=== PATIENT | male | born 1980 | race Caucasian/White ===

== ENCOUNTER 2019-06-24 17:53 | Emergency (ER) | payer OTHER, SELFPAY ==
--- NOTE | 2019-06-24 17:59 | ECG_ITS ---
Measurements Intervals [place] Rate: 74 P: 45 MA: 154 QRS: -3 QRSD: 110 T: -5 QT: 387 QTc: 430 Interpretive Statements SINUS RHYTHM INCOMPLETE RIGHT BUNDLE BRANCH BLOCK BORDERLINE ST-T WAVE ABNORMALITY- INFERIOR LEADS BORDERLINE ECG Electronically Signed On 06-25-2019 7:01:52 CDT by Yoni Brown D.O.
--- NOTE | 2019-06-24 18:04 | ED.GENADULT ---
HPI - General Adult General Chief complaint: Chest Pain Stated complaint: Chest Pain Time Seen by Provider: 06/24/19 18:04 Source: patient Mode of arrival: ambulatory Limitations: no limitations History of Present Illness HPI narrative: 39-year-old male patient presents to the [facility] with complaints of midsternal to left chest pain. Patient rates his pain at this time about 4-5 out of 10. Patient states it started about 3 days ago and was very mild but has gradually started to increase. Denies any history of heart issues, high blood pressure high cholesterol. Patient states that his father does have a mechanical valve in his heart. Patient denies any shortness of breath, lightheadedness, dizziness, headache, nausea, vomiting or diarrhea. Patient denies taking anything for his symptoms. Related Data Allergies Allergy/AdvReac Type Severity Reaction Status Date / Time No Known Allergies Allergy Unverified 01/22/14 15:26 Review of Systems Review of Systems: Narrative: CONSTITUTIONAL: Denies fever, chills, or sweats. EYES: Denies visual changes, redness, or discharge. ENT: Denies rhinorrhea, congestion, sore throat, or otalgia. CARDIOVASCULAR: Positive left-sided chest pain, denies palpitations, or edema. RESPIRATORY: Denies cough or dyspnea. GASTROINTESTINAL: Denies abdominal pain, nausea, vomiting, or diarrhea. GENITOURINARY: Denies dysuria or hematuria. SKIN: Denies rash or itching. MUSCULOSKELETAL: Denies back pain, joint pain, or myalgia. NEUROLOGIC: Denies headache, numbness, or weakness. PSYCHIATRIC: Denies anxiety or depression. PMFSH Comments At the time of my signature I agree with nursing past medical history, surgical, social, and family history. There is no relevant family history pertinent to the presenting complaint. Exam Narrative: Exam Narrative: GENERAL: Well-appearing, well-nourished, and in no acute distress. HEAD: Normocephalic, atraumatic. EYES: PERRLA and EOMI. ENT: Nares clear, no rhinorrhea or epistaxis. Mucous membranes moist. NECK: Supple. No lymphadenopathy CHEST: Clear to auscultation. No respiratory distress. Patient able talk in clear complete sentences. HEART: Regular rate and rhythm. No murmur heard. Normal peripheral pulses. ABDOMEN: Soft, nontender, nondistended, normal active bowel sounds. EXTREMITIES: Normal range of motion. No edema. SKIN: Warm, dry, no rash. NEURO: No focal deficits. Alert and oriented x3. Course Vital Signs Vital signs: Vital Signs Temperature 37.3 C 06/24/19 18:09 Pulse Rate 81 06/24/19 18:09 Respiratory Rate 18 06/24/19 18:09 Blood Pressure 137/87 06/24/19 18:09 Pulse Oximetry 97 06/24/19 18:09 Temperature 37.3 C 06/24/19 18:09 Pulse Rate 81 06/24/19 18:09 Respiratory Rate 18 06/24/19 18:09 Blood Pressure 137/87 06/24/19 18:09 Pulse Oximetry 97 06/24/19 18:09 Vital signs reviewed. The patient has been informed that they may have pre-hypertension or Hypertension based on a BP reading in the department. I recommend that the patient call the primary care provider listed on their discharge instructions or a physician of their choice this week to arrange follow up for further evaluation of possible pre-hypertension or Hypertension Transfer Transfered to: Juan Luis Transfer rationale: Chest pain Accepting physician: Dr. Roche Transfer comments: Called and spoke with Dr. Kaley Mcknight, ER gave her report on patient that is having some midsternal to left-sided chest pain for the past 3 days is gotten increasingly worse with an EKG showing some ST depression. 324 mg of chewable aspirin was given to the patient patient will be sent over by EMS. Dr. Roche is aware the plan of care at this time denies any other questions or concerns. Medical Decision Making Differential Diagnosis Differential Diagnosis: Differential diagnosis: STEMI/ACS, AAA, PE, spontaneous pneumothorax, cardiac tamponade, esophageal rupture, pneumonia,
[2019-06-24 18:09] VITALS: BP 137/87; PULSE 81; RESP 18; TEMP 37.3; O2SAT 97
[2019-06-24] MEDS: ASPIRIN 81 MG CHEWABLE TABLET 324 MG PO (18:15)
--- NOTE | 2019-06-24 18:24 | PC.NURSE ---
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 had been given 4, 81 mg aspirin.
== END 2019-06-24 18:26 | disposition short-term general hospital (02) ==
PROVIDERS: Emergency Provider Nurse Practitioner Family; PCP Internal Medicine
DX: R07.9 Chest pain, unspecified (principal); I45.10 Unspecified right bundle-branch block
CPT/HCPCS: 93005; 99215; A9270; G0463

== ENCOUNTER 2019-06-24 18:49 | Emergency (ER) | payer OTHER, SELFPAY ==
[2019-06-24] VITALS (7 sets, daily range): BP systolic 118–130; BP diastolic 83–89; PULSE 66–72; RESP 12–18; TEMP 36.6–37; O2SAT 95–98
--- NOTE | ~2019-06-24 | XR_ITS ---
EXAMINATION: XR chest 2V EXAM DATE: 06/24/2019 19:29 INDICATION: Mid chest pain. TECHNIQUE: Frontal and lateral projections of the chest obtained and reviewed. Comparison is made to prior examination from 12/21/2012. FINDINGS: The lungs are clear. There are no pleural effusions. The cardiomediastinal silhouette is within normal limits. There is no pneumothorax suspected. The bones and soft tissues are unremarkab le. IMPRESSION: No acute cardiopulmonary findings. Reviewed, dictated and finalized at location A.
--- NOTE | 2019-06-24 18:55 | ED.CHESTPAIN ---
HPI - Chest Pain General Chief Complaint: Chest Pain Stated Complaint: chest pain Time Seen by Provider: 06/24/19 18:59 Source: patient and RN notes reviewed Mode of arrival: EMS Limitations: no limitations History of Present Illness HPI narrative: A 39 y/o male presents to the ED via EMS from with intermittent, diffuse, chest discomfort for the past 3 days. He states that the pain radiated into his back but has since resolved. He denies any back pain or trouble breathing. No cough or fever. He notes that the pain is aggravated when he lays flat and is alleviated when he sits up. He denies any leg swelling, recent surgeries, recent long car or air travel. He denies numbness or pain in his back, arms or legs. He denies any fevers, cough, sweats, N/V/D, edema, SOB, or ABD pain. Pt does not smoke. No history of alcohol or drug use. No history of cardiac event or family history of sudden cardiac . MD complaint: chest discomfort Onset (ago): day(s) (3) Timing of current episode: episodic and now resolved Pain location: other (Diffuse) Pain radiation: back Relieving factors: sitting upright Exacerbating factors: other (laying flat) Risk Factors Coronary artery disease risk factors: none Related Data Home Medications Medication Instructions Recorded Confirmed No Home Medications 06/24/19 Allergies Allergy/AdvReac Type Severity Reaction Status Date / Time No Known Allergies Allergy Verified 06/24/19 18:57 Review of Systems Review of Systems: Narrative: CONSTITUTIONAL: Denies fever or sweats. CARDIOVASCULAR: Denies edema.Reports intermittent, diffuse, chest discomfort. RESPIRATORY: Denies cough or dyspnea. GASTROINTESTINAL: Denies abdominal pain, nausea, vomiting, or diarrhea. NEURO: Denies numbness All systems reviewed & are unremarkable except as noted in HPI and below PMFSH Past Medical History Medical History Ankle fracture Lt. 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 Surgical History Surgical History Hx of eye surgery Social History Social History Smoking status: Never smoker Alcohol intake: current Substance use: never Exam Narrative: Exam Narrative: GENERAL: Awake, alert, conversant HEAD: Normocephalic, atraumatic. EYES: EOMI, conjunctiva clear ENT: Nares patent. Mucous membranes moist. NECK: Full range of motion CHEST: No respiratory distress, speaking in full sentences, no tachypnea, no chest wall tenderness. HEART: Regular rate ABDOMEN: Non distended, non tender EXTREMITIES: Normal range of motion. No edema. SKIN: Warm, dry, no rash. NEURO: No focal deficits. Alert and oriented x3. Course Vital Signs Vital signs: Vital Signs Temperature 36.8 C 06/24/19 18:49 Pulse Rate 71 06/24/19 18:49 Respiratory Rate 16 06/24/19 18:49 Blood Pressure 124/87 06/24/19 18:49 Pulse Oximetry 96 06/24/19 18:49 Temperature 36.8 C 06/24/19 18:49 Pulse Rate 66 06/24/19 19:41 Respiratory Rate 12 06/24/19 19:41 Blood Pressure 118/85 06/24/19 19:41 Pulse Oximetry 97 06/24/19 19:41 MDM - Chest Pain MDM Narrative Medical decision making narrative: Patient's EKG and labs are without significant high risk changes. Patient does not have any concerning ST depression, no Brugada type pattern, no delta wave, no evidence of ST elevation. Given patient only has chest pain when he is laying flat, although has no orthopnea, no sign of heart failure. Cardiac risk factors reviewed. Patient is felt low risk for ACS and reasonable for further risk stratification testing as an outpatient. Pain was not sudden or maximal or onset without tearing or ripping quality. No other signs or symptoms to suggest aortic dissection. A low risk well's criteria is noted, PE is felt to be unlikely as no tachycardia, hypoxia, dyspnea. No p
--- NOTE | 2019-06-24 19:03 | PC.NURSE ---
Pt states he has L sided chest pain that is noticeable when laying down. Pt states he does not notice it while active. Pt states the pain has been present x 2 days. Pt is A&Ox4. Pt denies other symptoms. Pt LCTA
--- NOTE | 2019-06-24 19:08 | ECG_ITS ---
Measurements Intervals [place] Rate: 69 P: 34 OR: 158 QRS: 1 QRSD: 110 T: 11 QT: 401 QTc: 432 Interpretive Statements SINUS RHYTHM BORDERLINE T WAVE ABNORMALITY- INFERIOR LEADS BASELINE ARTIFACT- I, III, AVL BORDERLINE ECG Electronically Signed On 06-25-2019 7:02:50 CDT by Yoni Brown D.O.
[2019-06-24 19:13] LABS: Basophils Percent Auto 0.5 % (0.2-1.2); Eosinophils Absolute Auto 0.2 K/mm3 (0-0.3); Hematocrit 43.6 % (42.0-52.0); Hemoglobin 15.1 g/dL (14.0-18.0); Immature Granulocyte Absolute 0.01 K/mm3 (0.00-0.031); Immature Granulocyte Percent A 0.1 % (0-0.5); Lymphocytes Absolute Auto 2.55 K/mm3 (0.9-3.2); Lymphocytes Percent Auto 34.9 % (18.3-44.2); Mean Corpuscular HGB Conc 34.6 g/dl (32-36); Mean Corpuscular Hemoglobin 31.7 pg (26-34); Mean Corpuscular Volume 91.4 fl (80-100); Mean Platelet Volume 11.1 fl (7.4-10.4); Monocytes Absolute Auto 0.6 K/mm3 (0.1-0.6); Monocytes Percent Auto 7.9 % (2.6-8.5); Neutrophils Absolute Auto 3.9 K/mm3 (1.3-6.7); Neutrophils Percent Auto 53.6 % (45.5-73.1); Platelet Count Result 202 k/mm3 (150-375); Red Blood Count 4.77 M/mm3 (4.6-6.20); Red Cell Distribution Width 11.9 % (11.5-14.5); White Blood Count 7.3 K/mm3 (4.5-10.0)
[2019-06-24 19:23] LABS: Prothrombin Time 13.1 Seconds (11.1-14.7)
[2019-06-24 19:24] LABS: Partial Thromboplastin Time 24.6 SECONDS (22.3-36.8)
[2019-06-24 19:27] LABS: Blood Urea Nitrogen 14 mg/dL (9-20); Carbon Dioxide 31 mmol/L (22-30); Chloride 101 mmol/L (98-107); Estimated CRCL calculation 98 ml/min; Estimated Glomerular Filt Rate > 60; Glucose 104 mg/dL (75-110); Potassium 3.5 mmol/L (3.4-5.0); Sodium 137 mmol/L (137-145)
[2019-06-24 19:39] LABS: NT Pro B Type Natriuretic Pept 67 PG/ML (5-100); Troponin I < 0.012 ng/mL (0.000-0.034)
[2019-06-24 21:36] LABS: Troponin I < 0.012 ng/mL (0.000-0.034)
== END 2019-06-24 22:21 | disposition home or self-care (01) ==
PROVIDERS: Emergency Provider Emergency Medicine; PCP Internal Medicine
DX: R07.89 Other chest pain (principal); Z85.828 Personal history of other malignant neoplasm of skin; R94.31 Abnormal electrocardiogram [ECG] [EKG]
CPT/HCPCS: 36415; 71046; 80048; 83880; 84484; 85025; 85610; 85730; 93005; 99284

== ENCOUNTER 2019-09-24 07:27 | Emergency (ER) | payer OTHER, SELFPAY ==
--- NOTE | ~2019-09-24 | XR_ITS ---
EXAMINATION: XR chest 1V portable EXAM DATE: 09/24/2019 08:46 INDICATION: Cough. TECHNIQUE: Portable AP frontal chest x-ray was obtained. Comparison is made to prior examination from 06/24/2019. FINDINGS: The lungs are clear. There are no pleural effusions. The cardiomediastinal silhouette is within normal limits. There is no pneumothorax suspected. The bones and soft tissues are unremarkab le. IMPRESSION: No acute cardiopulmonary findings. Reviewed, dictated and finalized at location B.
[2019-09-24 07:36] VITALS: BP 144/98; PULSE 84; RESP 18; TEMP 37.2; O2SAT 99
[2019-09-24 07:38] VITALS: O2SAT 99
--- NOTE | 2019-09-24 08:19 | ED.URI ---
HPI - URI/Sore Throat General Chief Complaint: Upper Respiratory Infection Stated Complaint: cough, achy Time Seen by Provider: 09/24/19 07:43 Source: patient Mode of arrival: ambulatory Limitations: no limitations History of Present Illness HPI Narrative: This patient is a 39 year old male who presents for evaluation of cough. He states starting on Saturday he developed flu like symptoms. He states he has had sore throat, body aches, cough . His cough yesterday became productive with phlegm. He denies wheezing or shortness of breath. He is concern if he needs antibiotics. HE also states he had fever last night of 100 F. His and daughter have had similar symptoms but he states there symptoms only lasted 2 days. He feels better but he came to be assesed for need for antibiotics for his productive cough. MD elicited complaint: fever, cough, sore throat and rhinorrhea Onset (ago): day(s) (5) Consistency: improved Able to tolerate fluids by mouth: Yes Exacerbating factors: nothing Context: sick contacts Associated symptoms: fever, chills, myalgias, sore throat and cough Related Data Allergies Allergy/AdvReac Type Severity Reaction Status Date / Time No Known Allergies Allergy Verified 06/24/19 18:57 Review of Systems Review of Systems: All systems reviewed & are unremarkable except as noted in HPI and below Constitutional: Constitutional: Reports chills and Reports fever(s) ENT: Reports sore throat Cardiovascular: Cardiovascular: Denies chest pain Respiratory: Respiratory: Reports chest congestion, Reports cough, Denies dyspnea and Denies wheezing Gastrointestinal: Gastrointestinal: Denies abdominal pain, Reports diarrhea and Denies nausea Musculoskeletal: Musculoskeletal: Reports myalgias PMFSH Social History Social History Smoking status: Never smoker Alcohol intake: current Substance use: never Gender identity (if verbalized by the patient): Male Exam Narrative: Exam Narrative: GENERAL: Well-appearing, well-nourished, and in no acute distress. HEAD: Normocephalic, atraumatic EYES: PERRLA and EOMI, conjunctiva clear without discharge EARS: TM's clear bilaterally without erythema or dullness NOSE: Nares clear, no rhinorrhea or epistaxis THROAT:Mucous membranes moist, Oropharynx normal without erythema, exudate, peritonsillar swelling or fluctuance NECK: Supple, without lymphadenopathy or mass RESPIRATORY: No respiratory distress, Airway patent, Respirations non-labored, Clear to auscultation without rales, rhonchi or wheeze HEART: Regular rate and rhythm. No murmur heard. Normal peripheral pulses. ABDOMEN: Soft, nontender, nondistended, normal active bowel sounds. No masses. No rebound or guarding, No organomegaly. EXTREMITIES: No edema, normal strength with full range of motion. SKIN: Warm, dry, normal color without rash NEURO: Alert and oriented x3. CN 2-12 grossly intact. No focal deficits. PSYCH: Normal mood and affect. Course Reevaluation(s) Reevaluation #1: I have discsused with patient that he is being tested for COVID. No pneumonia or hypoxia seen. Date: 09/24/19 Time: 09:38 Vital Signs Vital signs: Vital Signs Temperature 99.0 F 09/24/19 07:36 Pulse Rate 84 09/24/19 07:36 Respiratory Rate 18 09/24/19 07:36 Blood Pressure 144/98 H 09/24/19 07:36 Pulse Oximetry 99 09/24/19 07:36 Temperature 99.0 F 09/24/19 07:36 Pulse Rate 81 09/24/19 10:00 Respiratory Rate 12 09/24/19 10:00 Blood Pressure 141/98 H 09/24/19 10:00 Pulse Oximetry 96 09/24/19 10:00 MDM - URI/Sore Throat Lab Data Labs: Lab Results 09/24/19 Range/Units 08:55 SARS-CoV-2 RNA (RT-PCR) Pending Influenza A Screen Negative Reference Range: Negative Influenza B Screen Negative Reference Range: Negative Strep Screen Presumptive Negative *(Reference
[2019-09-24 10:00] VITALS: BP 141/98; PULSE 81; RESP 12; O2SAT 96
[2019-09-25 14:41] LABS: SARS-CoV-2 RNA PCR Positive
== END 2019-09-24 10:01 | disposition home or self-care (01) ==
PROVIDERS: Emergency Provider General Practice; PCP Internal Medicine
DX: U07.1 COVID-19 (principal); J06.9 Acute upper respiratory infection, unspecified
CPT/HCPCS: 71045; 87081; 87635; 87804; 87880; 99283; C9803; U0003

== ENCOUNTER 2019-09-26 08:41 | Emergency (ER) | payer OTHER, SELFPAY ==
--- NOTE | ~2019-09-26 | CT_ITS ---
EXAMINATION: CTA chest PE protocol DATE: 09/26/2019 09:52 INDICATION: Chest pain and pressure. COVID 19 positive TECHNIQUE: Computed tomography (CT) pulmonary angiogram of the chest was performed with 100 mL Omnipa que-350 intravenous contrast. Additional 3D reconstructions utilizing coronal maximum intensity proje ction (MIP) were performed. Automated exposure control and iterative reconstruction technique were em ployed. The dose-length product was 504.94 mGy-cm. COMPARISON: None FINDINGS: Excellent contrast opacification of the pulmonary arteries. There is mild streak artifact from dense contrast in the superior vena cava and right atrium. Minimal scattered respiratory motion artifact wh ich does not significantly limit evaluation. No pulmonary embolism. Triangular 8 mm subsolid nodule i n the posterior segment of the left upper lobe. Other airspace opacities, pulmonary edema, pleural ef fusion or pneumothorax. Heart size is normal. No pericardial effusion. Thoracic aorta is normal in ca liber with no dissection. No pathologically enlarged thoracic lymphadenopathy. Visualized upper abdom en is unremarkable. Mild thoracic spondylosis. IMPRESSION: 1. No pulmonary embolism. 2. Single 8 mm subsolid nodule in the left upper lobe which is most likely infectious/inflammatory in etiology. Recommend 6-12 month follow-up noncontrast chest CT. Reviewed, dictated and finalized at location A. IMPRESSION: 1. No pulmonary embolism. 2. Single 8 mm subsolid nodule in the left upper lobe which is most likely infe ctious/inflammatory in etiology. Recommend 6-12 month follow-up noncontrast [facility] CT.
[2019-09-26 08:45] VITALS: BP 131/104; PULSE 78; RESP 18; TEMP 37.1; O2SAT 97
--- NOTE | 2019-09-26 08:51 | ECG_ITS ---
Measurements Intervals [place] Rate: 72 P: 40 IN: 140 QRS: 8 QRSD: 102 T: -17 QT: 385 QTc: 424 Interpretive Statements SINUS RHYTHM WITH SINUS ARRHYTHMIA NONSPECIFIC ST & T-WAVE ABNORMALITY- ANTEROLAT/INF LEADS BORDERLINE ECG Electronically Signed On 09-26-2019 13:20:21 CDT by Yoni Brown D.O.
--- NOTE | 2019-09-26 08:54 | ED.CHESTPAIN ---
HPI - Chest Pain General Chief Complaint: Chest Pain Stated Complaint: Covid+, chest pain Time Seen by Provider: 09/26/19 08:45 History of Present Illness HPI narrative: Chest pressure for the past few days. constant. Positive test for COVID 19 2 days ago. Was feeling very sick at that time, feeling much better now. Told his uncle, who is a physician, about his symptoms and he was told to come here and make sure that he does not have a blood clot. Related Data Allergies Allergy/AdvReac Type Severity Reaction Status Date / Time No Known Allergies Allergy Verified 09/26/19 08:51 Review of Systems Review of Systems: All systems reviewed & are unremarkable except as noted in HPI and below Constitutional: Constitutional: Denies fatigue, Reports fever(s) and Denies weakness ENT: Denies sore throat Cardiovascular: Cardiovascular: Reports chest pain and Denies radiating jaw, neck or arm pain Respiratory: Respiratory: Reports cough and Denies dyspnea Gastrointestinal: Gastrointestinal: Denies abdominal pain, Reports diarrhea and Reports nausea Musculoskeletal: Musculoskeletal: Reports myalgias PMFSH Past Medical History Medical History (Updated 09/26/19 @ 10:34 by Benjamin Caldwell MD) Ankle fracture Lt. 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 Surgical History Surgical History Hx of eye surgery Social History Social History Smoking status: Never smoker Alcohol intake: current Substance use: never Gender identity (if verbalized by the patient): Male Exam Const: General: healthy appearing, no acute distress and alert Orientation/consciousness: patient oriented x3 HENMT: Head: normal to inspection Neck: Neck: normal visual inspection and no lymphadenopathy Chest: Chest palpation & inspection: no tenderness Resp: Effort & Inspection: normal respiratory effort Auscultation: clear to auscultation bilaterally, no rales, no rhonchi and no wheezes Cardio: Jugular venous distension: no JVD Rate: regular rate Rhythm: regular rhythm Heart sounds: no murmurs GI: Inspection: non-distended GI Palp: Yes Soft to palpation and No Tenderness to palpation present (GI) Skin: General skin exam: normal color Neuro: General: patient oriented x3 and moves all extremities Speech: normal speech Extrem: General: no edema Psych: Appearance: well kempt Affect: Anxious affect present Course Vital Signs Vital signs: Vital Signs Temperature 37.1 C 09/26/19 08:45 Pulse Rate 78 09/26/19 08:45 Respiratory Rate 18 09/26/19 08:45 Blood Pressure 131/104 H 09/26/19 08:45 Pulse Oximetry 97 09/26/19 08:45 Temperature 37.1 C 09/26/19 08:45 Pulse Rate 62 09/26/19 11:03 Respiratory Rate 20 09/26/19 11:03 Blood Pressure 134/85 09/26/19 11:03 Pulse Oximetry 99 09/26/19 11:03 MDM - Chest Pain MDM Narrative Medical decision making narrative: CTA negative. Informed of nodule and need for follow-up. Medical Records Data Attestation: I reviewed the patient's medical records. Lab Data Attestation: I reviewed the patient's lab results. Result diagrams: 09/26/19 09:04 09/26/19 09:04 Labs: Lab Results 09/26/19 09/26/19 09/26/19 Range/Units 09:04 09:04 09:04 WBC 2.8 L (4.5-10.0) K/mm3 RBC 4.94 (4.6-6.20) M/mm3 Hgb 15.6 (14.0-18.0) g/dL Hct 44.0 (42.0-52.0) % MCV 89.1 (80-100) fl MCH 31.6 (26-34) pg MCHC 35.5 (32-36) g/dl RDW 11.5 (11.5-14.5) % Plt Count 171 (150-375) k/mm3 MPV 11.0 H (7.4-10.4) fl Immature Gran % (Auto) 0.0 (0-0.5) % Neut % (Auto) 31.6 L (45.5-73.1) % Lymph % (Auto) 49.5 H (18.3-44.2) % [place] % (Auto) 14.9 H (2.6-8.5) % Eos % (Auto) 3.3 (0-4.4) % Baso % (Auto) 0.7 (0.2-1.2) % Lymph # (Auto) 1.36
[2019-09-26 09:16] LABS: Basophils Percent Auto 0.7 % (0.2-1.2); Eosinophils Absolute Auto 0.1 K/mm3 (0-0.3); Eosinophils Percent Auto 3.3 % (0-4.4); Hemoglobin 15.6 g/dL (14.0-18.0); Lymphocytes Absolute Auto 1.36 K/mm3 (0.9-3.2); Lymphocytes Percent Auto 49.5 % (18.3-44.2); Mean Corpuscular HGB Conc 35.5 g/dl (32-36); Mean Corpuscular Hemoglobin 31.6 pg (26-34); Mean Corpuscular Volume 89.1 fl (80-100); Monocytes Absolute Auto 0.4 K/mm3 (0.1-0.6); Monocytes Percent Auto 14.9 % (2.6-8.5); Neutrophils Absolute Auto 0.9 K/mm3 (1.3-6.7); Neutrophils Percent Auto 31.6 % (45.5-73.1); Platelet Count Result 171 k/mm3 (150-375); Red Blood Count 4.94 M/mm3 (4.6-6.20); Red Cell Distribution Width 11.5 % (11.5-14.5); White Blood Count 2.8 K/mm3 (4.5-10.0)
[2019-09-26 09:25] VITALS: BP 120/96; PULSE 76; RESP 18; O2SAT 98
[2019-09-26 09:25] LABS: Prothrombin Time 12.6 Seconds (11.1-14.7)
[2019-09-26 09:26] LABS: Partial Thromboplastin Time 27.7 SECONDS (22.3-36.8)
[2019-09-26 09:29] LABS: Blood Urea Nitrogen 12 mg/dL (9-20); Calcium 8.8 mg/dL (8.4-10.2); Carbon Dioxide 24 mmol/L (22-30); Chloride 106 mmol/L (98-107); D Dimer 0.27 ug/mL (<0.48); Estimated Glomerular Filt Rate > 60; Glucose 103 mg/dL (75-110); Potassium 4.2 mmol/L (3.4-5.0); Sodium 137 mmol/L (137-145)
[2019-09-26 09:41] LABS: Troponin I < 0.012 ng/mL (0.000-0.034)
[2019-09-26 11:03] VITALS: BP 134/85; PULSE 62; RESP 20; O2SAT 99
== END 2019-09-26 11:05 | disposition home or self-care (01) ==
PROVIDERS: Emergency Provider Emergency Medicine; PCP Internal Medicine
DX: R07.89 Other chest pain (principal); U07.1 COVID-19; R94.31 Abnormal electrocardiogram [ECG] [EKG]; Z85.828 Personal history of other malignant neoplasm of skin; R91.1 Solitary pulmonary nodule
CPT/HCPCS: 36415; 71275; 80048; 84484; 85025; 85380; 85610; 85730; 93005; 99284; Q9967

== ENCOUNTER 2019-09-28 00:47 | Emergency (ER) | payer OTHER, SELFPAY ==
--- NOTE | ~2019-09-28 | XR_ITS ---
EXAMINATION: XR chest 1V portable DATE: 09/28/2019 02:04 INDICATION: Chest pain TECHNIQUE: frontal view of the chest was obtained. COMPARISON: Chest radiograph dated 09/24/2019 FINDINGS: The lungs remain clear with no focal airspace opacities, pulmonary edema, pleural effusion or pneumot horax. The cardiomediastinal silhouette is normal. Visualized bones and soft tissues are unremarkable . IMPRESSION: 1. No acute cardiopulmonary disease. Reviewed, dictated and finalized at location A.
[2019-09-28 00:57] VITALS: BP 140/100; PULSE 75; RESP 16; TEMP 36.7; O2SAT 97
--- NOTE | 2019-09-28 01:01 | ECG_ITS ---
Measurements Intervals [place] Rate: 74 P: 26 TN: 144 QRS: -5 QRSD: 105 T: -8 QT: 393 QTc: 438 Interpretive Statements SINUS RHYTHM NONSPECIFIC ST & T-WAVE ABNORMALITY- ANT/INF LEADS BORDERLINE ECG Electronically Signed On 09-28-2019 7:14:01 CDT by Yoni Brown D.O.
--- NOTE | 2019-09-28 01:01 | PC.NURSE ---
Patient states I've had all this the past 2 days, I don't want to do that again, Ill just do the EKG and wait for the doctor to come in. Patient refusing blood draw and IV placement at this time.
--- NOTE | 2019-09-28 01:37 | ED.CHESTPAIN ---
HPI - Chest Pain General Chief Complaint: Chest Pain Stated Complaint: COVID +, chest pain Time Seen by Provider: 09/28/19 00:51 Source: RN notes reviewed and old records reviewed History of Present Illness HPI narrative: Patient presents emergency department from home for chest pain. Patient states he was diagnosed with COVID-19 on 23 September. He states that since that time he has been having midsternal chest pain that is worse at night and improves during the day. Patient states he also feels short of breath patient was seen in the emergency department 2 days ago and had a full work-up including a CTA of his chest that was negative. He states he did take ibuprofen at home with minimal relief. Denies any fevers or chills abdominal pain or any other symptoms Related Data Allergies Allergy/AdvReac Type Severity Reaction Status Date / Time No Known Allergies Allergy Verified 09/26/19 08:51 Review of Systems Review of Systems: Narrative: Gen.: Denies fevers or chills ENT: Denies congestion Respiratory: Reports shortness of breath CV: See HPI GI: Denies abdominal pain nausea, emesis or diarrhea Musculoskeletal: Denies back pain or muscle pain Neuro: Denies numbness, tingling, weakness or focal weakness Skin: Denies rash Except as documented, all other systems reviewed and negative PMFSH Past Medical History Medical History Ankle fracture Lt. 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 Surgical History Surgical History Hx of eye surgery Social History Social History Smoking status: Never smoker Alcohol intake: current Substance use: never Gender identity (if verbalized by the patient): Male Exam Narrative: Exam Narrative: APPEARANCE: No acute distress, nontoxic, resting in bed EYES: EOMI HEENT: Normocephalic, atraumatic, OMM RESPIRATORY: No respiratory distress Clear to auscultation bilaterally with no rhonchi wheezing or rales. CARDIOVASCULAR: Regular rate and rhythm without murmurs rubs or gallops. ABDOMINAL: Soft, nontender, nondistended, no rebound or guarding MUSCULOSKELETAl: Moves all extremities. No clubbing, cyanosis or edema. NEURO: Awake and alert. Following commands, speech normal, no focal deficits SKIN:: Warm, dry. No rashes lesions or abrasions PSYCHIATRIC: Normal affect/mood, Course Course Emergency Course: Get all the records. Patient with cardiac work-up less than 2 days ago including CTA of his chest Patient states chest pain is resolved with morphine Discussed with patient results of workup and diagnosis. Discussed need for follow-up with primary care, proper use of medication, and reasons to return to the emergency department. Patient understands and agrees to current treatment plan. Patient states he does not have an inhaler at home will send home inhaler Vital Signs Vital signs: Vital Signs Temperature 98.1 F 09/28/19 00:57 Pulse Rate 75 09/28/19 00:57 Respiratory Rate 16 09/28/19 00:57 Blood Pressure 140/100 H 09/28/19 00:57 Pulse Oximetry 97 09/28/19 00:57 Temperature 98.1 F 09/28/19 00:57 Pulse Rate 59 L 09/28/19 03:12 Respiratory Rate 14 09/28/19 03:12 Blood Pressure 126/88 09/28/19 03:12 Pulse Oximetry 99 09/28/19 03:12 MDM - Chest Pain Lab Data Result diagrams: 09/28/19 01:58 09/28/19 01:58 Labs: Lab Results 09/28/19 09/28/19 09/28/19 Range/Units 01:58 01:58 01:58 WBC 4.0 L (4.5-10.0) K/mm3 RBC 4.63 (4.6-6.20) M/mm3 Hgb 14.7 (14.0-18.0) g/dL Hct 41.4 L (42.0-52.0) % MCV 89.4 (80-100) fl MCH 31.7 (26-34) pg MCHC 35.5 (32-36) g/dl RDW 11.4 L (11.5-14.5) % Plt Count 186 (150-375) k/mm3 MPV 10.9 H (7.4-10.4) fl Immature Gran % (Auto) 0.3 (0-0.
[2019-09-28] MEDS: MORPHINE SULFATE 2 MG/ML INJ IV PUSH (01:59)
[2019-09-28 02:08] LABS: Basophils Percent Auto 0.5 % (0.2-1.2); Eosinophils Absolute Auto 0.1 K/mm3 (0-0.3); Eosinophils Percent Auto 2.8 % (0-4.4); Hematocrit 41.4 % (42.0-52.0); Hemoglobin 14.7 g/dL (14.0-18.0); Immature Granulocyte Absolute 0.01 K/mm3 (0.00-0.031); Immature Granulocyte Percent A 0.3 % (0-0.5); Lymphocytes Absolute Auto 1.29 K/mm3 (0.9-3.2); Lymphocytes Percent Auto 32.5 % (18.3-44.2); Mean Corpuscular HGB Conc 35.5 g/dl (32-36); Mean Corpuscular Hemoglobin 31.7 pg (26-34); Mean Corpuscular Volume 89.4 fl (80-100); Mean Platelet Volume 10.9 fl (7.4-10.4); Monocytes Absolute Auto 0.5 K/mm3 (0.1-0.6); Monocytes Percent Auto 13.4 % (2.6-8.5); Neutrophils Percent Auto 50.5 % (45.5-73.1); Platelet Count Result 186 k/mm3 (150-375); Red Blood Count 4.63 M/mm3 (4.6-6.20); Red Cell Distribution Width 11.4 % (11.5-14.5)
[2019-09-28 02:19] LABS: Blood Urea Nitrogen 9 mg/dL (9-20); Calcium 8.6 mg/dL (8.4-10.2); Carbon Dioxide 27 mmol/L (22-30); Chloride 101 mmol/L (98-107); Estimated Glomerular Filt Rate > 60; Glucose 107 mg/dL (75-110); Potassium 3.6 mmol/L (3.4-5.0); Sodium 136 mmol/L (137-145)
[2019-09-28 02:31] LABS: Troponin I < 0.012 ng/mL (0.000-0.034)
[2019-09-28 02:39] LABS: INR 1.1; Partial Thromboplastin Time 28.9 SECONDS (22.3-36.8); Prothrombin Time 13.9 Seconds (11.1-14.7)
[2019-09-28 03:12] VITALS: BP 126/88; PULSE 59; RESP 14; O2SAT 99
[2019-09-28 03:49] VITALS: BP 124/90; PULSE 74; RESP 17; TEMP 36.6; O2SAT 98
== END 2019-09-28 03:50 | disposition home or self-care (01) ==
PROVIDERS: Emergency Provider Emergency Medicine; PCP Internal Medicine
DX: U07.1 COVID-19 (principal); R07.89 Other chest pain
CPT/HCPCS: 36415; 71045; 80048; 84484; 85025; 85610; 85730; 93005; 96374; 99284; J2270

== ENCOUNTER 2020-06-29 14:25 | Emergency (ER) | payer OTHER, SELFPAY ==
--- NOTE | ~2020-06-29 | XR_ITS ---
EXAMINATION: XR chest 2V DATE: 06/29/2020 14:43 INDICATION: Burning chest pain. TECHNIQUE: Frontal and lateral views of the chest were obtained. COMPARISON: Chest single view 09/28/2019, chest CT 09/26/2019 FINDINGS: The chest demonstrates clear lungs without pneumonia, pleural effusion, or pneumothorax. Th e heart size is normal. IMPRESSION: 1. No acute cardiopulmonary disease. Reviewed, dictated and finalized at location A.
[2020-06-29 14:35] VITALS: BP 133/88; PULSE 86; RESP 16; TEMP 36.6; O2SAT 98
--- NOTE | 2020-06-29 14:55 | ED.URI ---
HPI - URI/Sore Throat General Chief Complaint: Upper Respiratory Infection Stated Complaint: LUNG BURNING Time Seen by Provider: 06/29/20 14:56 Source: patient and RN notes reviewed Mode of arrival: ambulatory Limitations: no limitations History of Present Illness HPI Narrative: 40-year-old male presents with concern for chest burning . Reports he has had these symptoms intermittently since June of last year. Reports he has been seen in the emergency room several times, however he has not seen his primary care doctor for this problem. Reports over the last several days he has had mild cough, rhinorrhea, nasal congestion which seemed to make the symptoms in his lungs worse. Reports symptoms are worse at night when he is laying down, reports hearing a crackling sound when he is laying down at night, with shortness of breath. He denies any fever, body aches, chills, sweats. Denies taking any medications for his symptoms. He denies any acute chest pain, shortness of breath at this time. Reports he was diagnosed with Covid in September, symptoms seem to worsen since his Covid diagnosis. MD elicited complaint: cough Related Data Allergies Allergy/AdvReac Type Severity Reaction Status Date / Time No Known Allergies Allergy Verified 12/04/19 10:56 Review of Systems Review of Systems: Narrative: CONSTITUTIONAL: Denies malaise, chills, sweats, or fever. EYES: Denies visual changes, redness, or discharge. ENT: Reports rhinorrhea, congestion. Denies sinus pain, otalgia or sore throat. CARDIOVASCULAR: Denies chest pain, palpitations, or edema. RESPIRATORY: Reports mild cough. Reports occasional chest burning with occasional dyspnea, crackles. GASTROINTESTINAL: Denies abdominal pain, nausea, vomiting, diarrhea, bloody, or mucous stools. GENITOURINARY: Denies dysuria or hematuria. SKIN: Denies rash or itching. MUSCULOSKELETAL: Denies myalgia. NEUROLOGIC: Denies numbness, weakness, or headache. All systems reviewed & are unremarkable except as noted in HPI and below PMFSH Past Medical History Medical History (Updated 06/29/20 @ 15:12 by Chiqui Allison NP) Ankle fracture Lt. 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 Surgical History Surgical History Hx of eye surgery Social History Social History Smoking status: Never smoker Alcohol intake: current Substance use: never Gender identity (if verbalized by the patient): Male Comments At time of signature, agree with nursing past medical, surgical, social and family history. There is no relevant family history pertinent to the presenting complaint Exam Narrative: Exam Narrative: GENERAL: Well-appearing, well-nourished, and in no acute distress. HEAD: Normocephalic EYES: PERRLA, conjunctivae clear ENT: Nares clear, turbinates erythematous, clear discharge. Mucous membranes moist. TM pearly diop with dull light reflex bilaterally; no tragal tenderness. Oropharynx not erythematous without lesions. Tonsils not enlarged and without exudate, no drooling, no hoarseness, no trismus, uvula midline. NECK: Supple. No lymphadenopathy CHEST: Clear to auscultation, breath sounds equal. No wheezing, rhonchi, rales, or stridor. No respiratory distress, speaks in full sentences. HEART: Regular rate and rhythm. No murmur heard. SKIN: Warm, dry, no rash. NEURO: Alert and oriented x3. PSYCH: Normal mood and affect Course Course Emergency Course: Patient is aware of diagnosis, understands and agrees to treatment plan. Anticipatory guidance given. Patient agrees to follow-up as directed and is aware of reasons to seek care at the emergency department. Portions of this record may have been created with voice recognition software Vital Signs Vital signs: Vital Signs Temperature 97.8 F 06/29/20 14:35 Pulse Rate 86 06/29/20 14:35 Resp
== END 2020-06-29 15:21 | disposition home or self-care (01) ==
PROVIDERS: Emergency Provider Nurse Practitioner; PCP Internal Medicine
DX: R06.02 Shortness of breath (principal); Z86.16 Personal history of COVID-19; Z85.828 Personal history of other malignant neoplasm of skin
CPT/HCPCS: 71046; 99213; G0463

== ENCOUNTER → 2020-12-24 00:08 | Outpatient (CLI) | payer OTHER, SELFPAY ==
[2020-12-24 19:35] LABS: SARS-CoV-2 RNA PCR Negative
== END ==
PROVIDERS: PCP Internal Medicine; Visit Provider Surgery
DX: Z01.812 Encounter for preprocedural laboratory examination (principal); Z20.822 Contact with and (suspected) exposure to COVID-19
CPT/HCPCS: C9803; U0003; U0005

== ENCOUNTER 2020-12-28 00:34 | Day surgery (SDC) | payer OTHER, SELFPAY ==
[2020-12-21 10:58] VITALS: BMI 26.1
[2020-12-28] MEDS: LACTATED RINGERS 1,000 ML 30 ML IV CONT ×2 (07:52→09:56)
[2020-12-28 07:55] VITALS: BP 132/94; PULSE 81; RESP 18; TEMP 36.2; O2SAT 99; BMI 26.2
--- NOTE | 2020-12-28 07:58 | SUR.PREOP ---
0720; PT STATES HE TOOK HIS 2 XANAX BEFORE ARRIVING HERE TODAY PRESCRIBED. PT STATES HE IS STILL A LITTLE ANXIOUS BUT BETTER.
--- NOTE | 2020-12-28 08:40 | WPDANESEPPF ---
Anes - Initial Pre Proc Eval Procedure: Operation Date: 12/28/20 09:00 Proposed Procedures p Excision of Subcutaneous Left Back Mass - Jean Claude Shah MD Date/Time: 12/28/20 08:40 Surgeon: Jean Claude Shah MD Pre Op Diagnosis: left back subcutaneous mass Patient Data Age: 40 Gender: M Height: 1.85 m Weight: 90 kg Last Vital Signs Temp 36.2 C L 12/28/20 07:55 Pulse 81 12/28/20 07:55 Resp 18 12/28/20 07:55 BP 132/94 H 12/28/20 07:55 Pulse Ox 99 12/28/20 07:55 Allergies Allergy/AdvReac Type Severity Reaction Status Date / Time No Known Allergies Allergy Verified 12/28/20 07:39 Home Medications Medication Instructions Recorded Confirmed Type albuterol sulfate 2 puff INHALATION QID PRN #8.5 gm 06/29/20 12/28/20 Rx alprazolam See Rx Instructions .ROUTE .COMPLEX 12/28/20 12/28/20 History Patient hx anesthesia problems: post op nausea/vomiting Family hx anesthesia problems: none Results Review: All pre-operative results and documents have been reviewed as part of the pre-operative evaluation. [facility] Past Medical History Medical History Ankle fracture Lt. 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 Surgical History Surgical History Hx of eye surgery Social History Social History Smoking status: Never smoker Alcohol intake: current Drinks per week: 3 Substance use: never Substance use type: does not use Living arrangements: with family Gender identity (if verbalized by the patient): Male Spiritual care concerns: No Anes - Eval Final PreProcedure Day of Procedure 12/28/20 08:40 Patient weight: overweight Heart: regular rate and rhythm Lungs: clear to auscultation Airway: Mallampati scale class III Neurological: alert and oriented Last oral intake: >/= 8 hours ASA classification: II Emergent: no Anesthetic plan: proceed Anesthesia type and monitoring: general GIVS and standard monitoring Results Review: All pre-operative results and documents have been reviewed as part of the pre-operative evaluation. Informed Consent: The patient's anesthetic plan and its attendant risks and benefits were discussed with the patient/family/POA. Questions were solicited and answers provided to the satisfaction of the patient/family/POA.
[2020-12-28] MEDS: MIDAZOLAM HCL (*CRX) 2 MG/2 ML VIAL IV PUSH (08:44)
--- NOTE | 2020-12-28 08:45 | WPDHPUPDATE1 ---
History and Physical Update Update Date/Time: 12/28/20 08:45 The subcutaneous mass is on the left side of the midline, medial to the scapula. It is not on the right side. History and Physical has been reviewed, including an updated exam of the patient. There are NO changes in the patient's condition. Risks, benefits, and alternatives have been discussed and questions answered. Patient agrees to proceed with procedure.
[2020-12-28] MEDS: ceFAZolin 2 GM/D5W 50 ML 2 GM/50 ML BAG IVPB (09:04)
[2020-12-28] MEDS: LIDO 1%/EPINEPHRINE 1:100,000 50 ML VIAL INFILTRATE (09:32)
[2020-12-28 09:54] VITALS: BP 132/87; PULSE 94; RESP 16; O2SAT 98
--- NOTE | 2020-12-28 10:12 | W.PM.PROC2 ---
Procedure Note - Detailed Date of Procedure 12/28/20 Pre-op Diagnosis left back subcutaneous mass Post-op Diagnosis other (5.5 cm subcutaneous lipoma left upper back) Procedure Performed Excision 5.5 cm subcutaneous mass of the back Surgeon Jean Claude Shah MD Customer Service Assistant Ilda Grant [facility] Anesthesia MAC and local (1% lidocaine with epinephrine) Indications Patient is a 40-year-old man with a subcutaneous mass of the left upper back. By palpation it is consistent with a lipoma. It has been getting larger and is occasionally uncomfortable. He is taken to surgery now for excision. Findings Lipoma of the subcutaneous measuring 5.5 cm x 4.5 cm x 1 cm. Description of Procedure The patient was checked in the preoperative holding area. The area of the lipoma was marked on the skin. The proposed incision was marked on the skin. He was then taken to surgery and IV sedation was administered. He was placed in prone position. The area of the left upper back was then prepped and draped. Local was infiltrated in the area of the anticipated incision as well as in the subcutaneous of forming a field block all around the subcutaneous mass. Incision was then made. Dissection was carried down through the skin and subcutaneous. There was somewhat of a capsule around the mass. Careful dissection was carried out to dissect the mass out from the subcutaneous skin. It was deep to Aditya's fascia. No muscle was exposed. The mass was completely excised. It was measured and then passed off to pathology in formalin. More local was infiltrated in the subcutaneous and the areas of dissection. We then closed the wound in layers. 3-0 Vicryl was used to close Aditya's fascia. Subcuticular interrupted 4 0 Vicryl skin sutures were then placed. Finally a running 4-0 Monocryl skin suture was placed. The wound was dressed with Exofin surgical adhesive. The patient was awakened and taken to recovery in good condition. Sponge and needle counts were correct x2. Estimated Blood Loss 5 Drains No Packing No Pathology yes (Subcutaneous mass of the back consistent with a lipoma) Complications None Condition stable Disposition same day
[2020-12-28 10:29] VITALS: BP 124/87; PULSE 62; RESP 16
== END 2020-12-28 10:54 | disposition home or self-care (01) ==
PROVIDERS: PCP Internal Medicine; Visit Provider Surgery
PROC: (CPT 21931; principal; 2020-12-28 09:00)
DX: D17.1 Benign lipomatous neoplasm of skin and subcutaneous tissue of trunk (principal); Z79.51 Long term (current) use of inhaled steroids; Z86.16 Personal history of COVID-19
CPT/HCPCS: 21931; 88304; C9803; J0690; J1100; J2250; J2405; J2704; J7120; U0003; U0005

== ENCOUNTER 2022-04-20 15:23 | Outpatient (CLI) | payer OTHER, SELFPAY ==
--- NOTE | ~2022-04-20 | US_ITS ---
EXAMINATION: US thyroid DATE: 04/20/2022 15:44 INDICATION: Hypothyroidism, unspecified. TECHNIQUE: Multiple ultrasound images of the thyroid were obtained. COMPARISON: Chest CT 09/26/2019 FINDINGS: The right thyroid lobe measures 4.3 x 1.8 x 1.7 cm. The left thyroid lobe measures 3.9 x 1.6 x 1.3 c m. The thyroid is diffusely heterogeneous and hypoechoic. Vascularity is increased. No discrete nodu le. IMPRESSION: 1. Heterogeneous, hypervascular thyroid, consistent with chronic lymphocytic (May) thyroiditis. Reviewed, dictated and finalized at location A. 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 Heterogeneous, hypervascular thyroid, consistent with chronic lymphocytic (H ashimoto) thyroiditis.
== END 2022-04-20 15:24 ==
PROVIDERS: PCP Family Medicine; Visit Provider Family Medicine
DX: E03.9 Hypothyroidism, unspecified (principal)
CPT/HCPCS: 76536